=== PATIENT | female | born 1950 | race Caucasian/White ===

== ENCOUNTER 2019-08-24 10:57 | Emergency (ER) | payer MEDICAID ==
[~2019-08-24] VITALS: Ht 162.6 cm; Wt 63.5 kg
[2019-08-24 10:58] VITALS: BP 150/77
--- NOTE | 2019-08-24 11:19 | NUR ---
68 YO FEMALE CO STEPPING ON A SEWING NEEDLE ONE MONTH AGE. PT STATES THAT SHE STILL FEELS THE NEEDLE IN HER FOOR. NO REDNESS, DRAINAGE OR SWELLING AT PUNCTURE SITE. NO PMH, NO RX MEDS.
--- NOTE | 2019-08-24 11:30 | NUR ---
RAD AT BEDSIDE
--- NOTE | 2019-08-24 12:15 | NUR ---
Dr. Finley is evaluating the patient at bedside.
[2019-08-24 12:39] VITALS: BP 150/77
--- NOTE | 2019-08-24 12:40 | NUR ---
Patient discharged with v/s stable. Written and verbal after care instructions given and explained. Patient verbalized understanding. Ambulatory with steady gait. All questions addressed prior to discharge. Advised to follow up with PMD.
== END 2019-08-24 12:40 | disposition home or self-care (01) ==
LOC: MED 10:57
DX: S80.852A Superficial foreign body, left lower leg, initial encounter (principal); X58.XXXA Exposure to other specified factors, initial encounter; Y93.89 Activity, other specified; Y92.89 Other specified places as the place of occurrence of the external cause; Y99.8 Other external cause status
CPT/HCPCS: 73620; 99283; Q0092